=== PATIENT | female | born 1985 | race Caucasian/White ===

== ENCOUNTER 2017-03-09 15:26 | Emergency (ER) | payer OTHER ==
[~2017-03-09] VITALS: Ht 165.1 cm; Wt 70.5 kg
[2017-03-09 15:28] VITALS: BP 102/63; PULSE 60; RESP 16; O2SAT 100
--- NOTE | 2017-03-09 16:07 | ED.REPORT ---
HPI-Dizziness / Weakness Date of Service Mar 09, 2017 ED Provider: Ant Elizabeth MD Pt is a 31 year old 27 week female presenting to the ED complaining of dizziness gradual onset today at 1230. Associated symptoms include ringing in her ears, nausea, lightheadedness, numbness and tingling in her feet. Pt was seen at [facility] today and was cleared. She denies previous similar symptoms. She describes the dizziness as similar to when you stand up too fast, and the edges of her vision were black. Pt is ambulatory, and reports that symptoms are exacerbated by movement. Denies cough, SOB or any other symptoms at this time. Nursing Notes Stated Complaint: DIZZY, 27WKS Chief Complaint: General Complaint Nursing Notes Reviewed: Yes Allergies: Coded Allergies: oxycodone (Verified Allergy, Severe, Rash,Itching,, 03/09/17) General Time Seen by MD: 16:06 Chief Complaint Dizzy Hx Obtained From: Patient Arrived By: Walk-in Onset Occurred: 1 - 4 hours ago Symptom Duration: Since onset Location: : No pain Severity: Current: No pain currently Severity: Maximum: No pain Recent Healthcare: No recent doctor visit, No recent hospitalization Similar Sx Previous: No Past Medical History Past Medical History Past Surgical History denies Smoking History Unknown if Ever Smoker Social History Alcohol Use: Denies alcohol use Drug Use: Denies drug use Ambulatory Status Independent Review of Systems Ears / Nose / Throat: Reports: Ear ringing bilateral Respiratory: Denies: Non-productive cough, Shortness of breath GI: Reports: Nausea Neurologic: Reports: Dizziness, Lightheaded, Numbness, Denies: Problem walking Complete sys rev & neg: except as marked. Physical Exam Initial Vital Signs Vital Signs (First) Date Time Temp Pulse Resp B/P Pulse Ox O2 Delivery O2 Flow Rate FiO2 03/09/17 15:28 36.2 60 16 102/63 100 Initial VS: Reviewed ENT: Mucous membranes moist, Conjunctiva normal, No scleral icterus Neck: Supple, Non-tender, Full range of motion Abdomen / GI: Soft, Non-tender, No guarding, No rebound, No distention Back: No CVA tenderness Extremities: Vascular intact, Neuro intact, No swelling, No tenderness Skin: Warm, Dry, No cyanosis Psychiatric: Mood/affect normal, Behavior normal, Normal thought content General/Constitutional: Awake, Alert, No acute distress, Well appearing Head / Eyes: Atraumatic, Normocephalic, PERRL, EOMI, No nystagmus Respiratory / Chest: Breath sounds NL, Breath sounds = bilat, No respiratory distress, No rales, No rhonchi, No wheezing Cardiovascular: Heart rate NL, Regular rhythm, Heart sounds NL, No murmurs, Cap refill not delayed, Peripheral circulation NL Neurologic: Oriented X3, Speech NL, No motor deficits, No sensory deficits, CN II - XII intact, Cerebellar NL Re-Eval/Medical Decision Re-Evaluation/Progress : Time of Eval: 16:40 Patient Status: Condition improved Re-Evaluation/Progress Note: Discussed plan for discharge. Pt understands and agrees with plan. Counseled Regarding: Diagnosis, Lab results, Need for follow-up, When/why to return to ED Patient Discharge & Departure Impression: Primary Impression: Vertigo Disposition: Home Discharge Condition All VS Reviewed: Yes Condition: Improved Patient Instructions: Benign Paroxysmal Positional Vertigo (ED) Additional Instructions: No dangerous cause for your dizziness today was identified. I believe that you have vertigo. Your symptoms will likely resolve on their own. Return to the ER if you develop any new or worsening symptoms such as speech problems, facial droop, or being unable to move your arms or legs. Physical if you have any questions. [phone] Congratulations on your ! Referrals: Kermit Bradley MD (PCP) Scribe Attestation Portions of this note were transcribed by Dariela Marsh. I, Dr. Elizabeth personally performed the history, physical exam and medical decision-making; I reviewed and confirmed the accuracy of the information in the transcribed note. Signed by: Joan Klein, 03/09/2017 at [Time]. Kermit Bradley MD, Kirk H MD Mar 09, 2017 16:07 DARIELA MARSH Mar 09, 2017 16:14
== END 2017-03-09 17:00 | disposition home or self-care (01) ==
LOC: SED 15:26
DX: O26.892 Other specified pregnancy related conditions, second trimester (principal); R42 Dizziness and giddiness; Z3A.27 27 weeks gestation of pregnancy; Z88.5 Allergy status to narcotic agent